=== PATIENT | male | born 1980 | race Caucasian/White ===

== ENCOUNTER 2019-12-14 08:19 | Emergency (ER) | payer OTHER ==
[~2019-12-14] VITALS: Ht 175.3 cm; Wt 110.5 kg
[2019-12-14] MEDS ORDERED: KETOROLAC TROMETHAMINE 60 MG/2 ML VIAL IM ONE (09:00)
[2019-12-14] MEDS ORDERED: IBUPROFEN 800 MG TABLET PO ONE (09:30)
[2019-12-14 09:45] VITALS: BP 137/91
== END 2019-12-14 10:26 | disposition home or self-care (01) ==
LOC: EMS 08:22
DX: S96.911A Strain of unspecified muscle and tendon at ankle and foot level, right foot, initial encounter (principal); F41.9 Anxiety disorder, unspecified; X50.0XXA Overexertion from strenuous movement or load, initial encounter; Y93.89 Activity, other specified; Y92.89 Other specified places as the place of occurrence of the external cause; Y99.0 Civilian activity done for income or pay

== ENCOUNTER 2021-03-06 14:01 | Emergency (ER) | payer OTHER ==
[~2021-03-06] VITALS: Ht 167.6 cm; Wt 118.2 kg
[2021-03-06 14:15] VITALS: BP 145/85
[2021-03-06] MEDS ORDERED: IBUP-2070 PO (15:40)
[2021-03-06] MEDS ORDERED: LIDO700A15 TP (15:40)
== END 2021-03-06 16:03 | disposition home or self-care (01) ==
LOC: EMS 14:05
DX: S46.012A Strain of muscle(s) and tendon(s) of the rotator cuff of left shoulder, initial encounter (principal); F41.9 Anxiety disorder, unspecified; W18.40XA Slipping, tripping and stumbling without falling, unspecified, initial encounter; Y93.89 Activity, other specified; Y92.89 Other specified places as the place of occurrence of the external cause; Y99.8 Other external cause status
CPT/HCPCS: 99283; Z7502